=== PATIENT | female | born 1970 | race Caucasian/White ===

== ENCOUNTER → 2017-04-20 | Outpatient (CLI) | payer MEDICARE, OTHER ==
[~2017-04-20] MED LIST: ALBUTEROL 0.083% (NEB) 2.5 MG/3 ML AMP
== END | disposition home or self-care (01) ==
LOC: PUL 09:38
DX: R06.2 Wheezing (principal)
CPT/HCPCS: 94060; 94726; 94729

== ENCOUNTER 2018-11-10 08:00 | Day surgery (SDC) | payer MEDICARE, OTHER ==
[2018-11-10] MEDS ORDERED: PROPOFOL 40 ML (09:37)
[2018-11-10] MEDS ORDERED: MIDAZOLAM 1 MG/ML 2 ML INJ (09:37)
[2018-11-10] MEDS ORDERED: PROPOFOL 20 ML ×2 (11:06)
== END 2018-11-10 15:06 | disposition home or self-care (01) ==
LOC: GIL 08:00
DX: K64.8 Other hemorrhoids (principal); D12.5 Benign neoplasm of sigmoid colon; M06.9 Rheumatoid arthritis, unspecified
CPT/HCPCS: 45380; 88305